=== PATIENT | female | born 1985 | race Caucasian/White ===

== ENCOUNTER 2018-03-10 02:27 | Inpatient (IN) | payer OTHER ==
[2018-03-10] MEDS ORDERED: Promethazine INJ(RESTRICTED)* 25 MG/ML 1 ML VIAL IM ONE (03:21)
[2018-03-10] MEDS ORDERED: Nalbuphine* 10 MG/ML 1 ML VIAL IM ONE (03:21)
[2018-03-10] MEDS ORDERED: Promethazine INJ(RESTRICTED)* 25 MG/ML 1 ML VIAL ONE (03:38)
[2018-03-10] MEDS ORDERED: Nalbuphine* 10 MG/ML 1 ML VIAL ONE (03:41)
[2018-03-10] MEDS ORDERED: Terbutaline INJ* 1 MG/ML VIAL SUBCUT ONE (07:23)
--- NOTE | 2018-03-10 07:23 | PN ---
Progress Note - Progress Note Date of Service: 03/10/18 - Note time 0545 Note: S: Patient did not get pain relief or sleep after nubain/phenergan. Feels that contractions are stronger, would like VE O: VE: 1-2cm/80/0 unchanged from earlier FHT 135 Cat 1 UCs Q 2.5-4 T 98.4 A: Prodromal labor P: Patient would like to try tub and consider nitrous. Discussed option to slow labor with terbutaline; patient would rather keep trying to move forward and is concerned about stopping contractions making process take longer.
--- NOTE | 2018-03-10 07:36 | PN ---
Progress Note - Progress Note Date of Service: 03/10/18 SOAP: Subjective: [Small amount of relief from tub, especially in hands/knees position. Patient reports episode of vomiting.] Objective: [VE deferred UCs Q 2-3 min] Assessment: [Prodromal labor Consider UTI, vaginal infection] Plan: [PARQ discussion terbutaline, patient initially very reluctant. Agrees to IV fluids. Plan to push bolus, collect urine for UA, Affirm to r/o vaginal infection. After discussion patient's to desk to state patient agrees to terbutaline. ]
[2018-03-10 07:55] LABS: ABS Basophils 0.1 10^3/ul (0-0.2); ABS Eosinophils 0 10^3/ul (0-0.6); ABS Lymphocytes 1.7 10^3/ul (1.0-4.8); ABS Monocytes 0.9 10^3/ul (0-0.8); ABS Neutrophils 12.7 10^3/ul (1.5-7.7); ABS Nucleated RBC 0 10^3/ul; Eosinophil % 0.2 % (0-6); Hematocrit 32 % (35-47); Hemoglobin 11.3 g/dl (12.0-16.0); Mean Corpuscular HGB Conc 35 g/dl (31-36); Mean Corpuscular Hemoglobin 32 pg (27-31); Mean Corpuscular Volume 90 fL (80-97); Nucleated Red Blood Cells % 0; Platelet Count 211 10^3/ul (150-450); Red Blood Count 3.56 10^6/ul (4.00-5.40); Red Cell Distribution Width 14 % (10.5-15); White Blood Count 15.4 10^3/ul (3.5-10.8)
[2018-03-10 09:03] LABS: Urine Appearance Cloudy; Urine Blood 3+ (Negative); Urine Color Yellow; Urine Ketones Trace (Negative); Urine Protein Negative (Negative); Urine Red Blood Cell Trace(0-2/hpf) (Absent); Urine Specific Gravity 1.009 (1.010-1.030); Urine Urobilinogen Negative (Negative); Urine White Blood Cell 2+(11-20/hpf) (Absent)
--- NOTE | 2018-03-10 10:28 | HP ---
General Information - Reason for Visit Pt was seen in L&D as outpatient several days ago for prodromal labor, treated with therapeutic rest and discharged home. Contractions did not subside however , and pt returned to L&D early this morning. On arrival pt was very uncomfortable (see Progress Notes) without cervical change. Therapeutic rest was attempted with Nubain and Phenergan but did not provide pt with relief. UA, Affirm were collected and pt was given IV hydration. After ctx did not decrease , pt was given dose of Terbutaline, which caused contractions to space out from every 2-4 minutes to every 8-10 minutes, but within half an hour ctx frequency was increasing again. At that time cervical exam was 2cm/ 100%/ 0 station/ vtx, which was small change from previous exam. Options discussed with pt and , including epidural and augmentation as needed, Nitrous Oxide, tub, etc. Pt elected to try nitrous oxide. While using nitrous oxide, side-lying release done through three ctx on each side. Pt experienced a lot of nausea with the nitrous oxide and some minimal relief. Again discussed options with pt and . We can try to treat the nausea with zofran so she can more effectively use the nitrous, we can get her an epidural, we can try IV Fentanyl. Pt and discussing options. Pt in side lying position with peanut ball. Will admit to L&D. - General Information Maternal Age: 33 Grav: 1 Para: 0 SAB: 0 IEA: 0 Estimated Due Date: 03/13/18 Determined By: LMP Maternal Blood Type and Rh: O Positive - Results this Serology/RPR Result: Non-Reactive Rubella Result: Immune HBsAg Result: Negative HIV Result: Negative GBS Culture Result: Negative Past Medical History Delivery History: See Records - Primiparous Pertinent Past Medical History: See Records - Factor V Leiden, benign breast cysts Pertinent Past Surgical History: See Records - Hartman tooth extraction , breast biopsy Pertinent Family History: See Records - mother- Factor V Leiden, stroke - Antepartal Records Antepartal Records: Reviewed, Uncomplicated Review of Systems Constitutional: Uncomfortable CV Complaint: No Respiratory: Shortness of Breath: No Gastrointestinal: Normal Bowel Movement, Nausea Genitourinary: No Dysuria, No Bleeding, No Leaking Fluid Musculoskeletal: No Epigastric Pain, Back Pain, Contractions Neurological: No Headache, No Visual Changes Movement: Normal Exam Allergies/Adverse Reactions: Allergies No Known Allergies Allergy (Verified 03/06/18 19:31) BP- 125/79, T-99.4, P-102, R-18, O2- 100% Lab Values - Entire Visit: Laboratory Tests 03/10/18 03/10/18 03/10/18 07:35 07:35 08:35 WBC 15.4 H RBC 3.56 L Hgb 11.3 L Hct 32 L MCV 90 MCH 32 H MCHC 35 RDW 14 Plt Count 211 MPV 8.0 Neut % (Auto) 82.3 Lymph % (Auto) 11.0 L [place] % (Auto) 5.7 Eos % (Auto) 0.2 Baso % (Auto) 0.8 Absolute Neuts (auto) 12.7 H Absolute Lymphs (auto) 1.7 Absolute Monos (auto) 0.9 H Absolute Eos (auto) 0 Absolute Basos (auto) 0.1 Absolute Nucleated RBC 0 Nucleated RBC % 0 Urine Color Yellow Urine Appearance Cloudy Urine pH 7.0 Ur Specific [place] 1.009 L Urine Protein Negative Urine Ketones Trace A Urine Blood 3+ A Urine Nitrate Negative Urine Bilirubin Negative Urine Urobilinogen Negative Ur Leukocyte Esterase 3+ A Urine WBC (Auto) 2+(11-20/hpf) A Urine RBC (Auto) Trace(0-2/hpf) Ur Squamous Epith Cells Present A Urine Bacteria Absent Urine Glucose Negative Blood Type O Positive Antibody Screen Negative - Measurements Height: 5 ft 4 in Weight: 63.503 kg Weight in lbs: 140.779738 Body Mass Index (BMI): 24.0 Pre- Weight: 52.163 kg Weight Gained This : 25 lbs and 0 ozs - Exam Breast: Breast Exam Deferred CVA: No CVA Tenderness Extremities: No Edema Heart: Normal Rhythm/Heart Sounds HEENT: No Significant Findings Lungs: Clear Bilaterally Rectal: Rectal Exam Deferred Reflexes: DTR 2+ Thyroid: No Thyromegaly - Abdominal Exam Abdomen Exam: Non-Tender, Fundal Height Consistent with Dates - Ultrasound/Biophysical Profile Ultrasound Status: Not Done Targeted Exam Findings See L&D Outpatient Visit Provider Note for Findings: Yes Estimated Weight: 6# Cervical Exam: 2cm Effacement: 100% Station: 0 Presenting Part: Vertex Membrane Status: Intact Bleeding/Discharge: None EFM Findings - External Monitor Findings Baseline Heart Rate: 160 External Monitor Findings: No Pattern of Variable or Late Decelerations, Variability Moderate, Baseline Stable, Accelerations Absent Contractions: Regular, Moderate, 45-90 Seconds Contraction Frequency: 4-5 minutes Assessment/Plan - Assessment 33 year old at 39 4/7 weeks gestation with prolonged early labor, intact membranes, and no evidence of acidemia. - Plan Plan: Admit - Anticipate Vaginal Delivery - Date/Time of Admission Date of Admission: 03/10/18 Time of Admission: 09:35
[2018-03-10] MEDS ORDERED: Ondansetron INJ* 2 MG/ML VIAL IV PRN (10:40)
[2018-03-10] MEDS ORDERED: Ondansetron INJ* 2 MG/ML VIAL ONE (10:42)
[2018-03-10] MEDS ORDERED: OBEPIDURAL* 250 ML EPIDURAL ONE (10:55)
--- NOTE | 2018-03-10 11:12 | PN ---
Progress Note - Progress Note Date of Service: 03/10/18 SOAP: Subjective: [Pt remains extremely uncomfortable with ctx, despite using nitrous oxide. Difficulty coping. Pt requests epidural] Objective: [VSS- Temporal artery thermometer temp was 100.7, oral temp was 98.7, pt had not had anything to drink prior FHR 160, moderate variabilty UCs moderate, Q3-5 minutes, 60-80 seconds Membranes intact, exam deferred until pt more comfortable with epidural] Assessment: [33 year old at 39 4/7 weeks gestation in prolonged early labor, fatigued and no longer able to cope effectively with ctx] Plan: [Anesthesiologist paged for epidural. Will attempt to get pt comfortable with epidural then evaluate dilation, consider augmentation as needed. Will monitor pt's temperature hourly. ]
[2018-03-10] MEDS ORDERED: Famotidine TAB* 20 MG PO PRN (11:59)
[2018-03-10] MEDS ORDERED: EPHEDrine (Pressors)* 50 MG/ML VIAL IV PUSH PRN ×2 (11:59)
[2018-03-10] MEDS ORDERED: Sodium Citrate/Citric Acid* 15 ML UDC PO PRN (11:59)
[2018-03-10] MEDS ORDERED: Phenylephrine IV* 40 MCG/ML 10 ML SYRINGE IV PUSH PRN ×2 (11:59)
[2018-03-10] MEDS ORDERED: OBEPIDURAL* 250 ML EPIDURAL SCH (12:00)
--- NOTE | 2018-03-10 12:25 | PN ---
Progress Note - Progress Note Date of Service: 03/10/18 SOAP: Subjective: [Pt very comfortable with epidural. Reports some pressure, but very tolerable. ] Objective: [FHR- 145 baseline, moderate variability, no accels, no decels Ctx 3-5 minutes, 60-80 seconds, moderate strength Cervical exam: 3cm/ 100%/ +1 station/ VTX/ bulging bag VSS- last temp 98.6 oral] Assessment: [33 year old G1Po at 39 4/7 weeks gestation in early labor, now making cervical change, no evidence of acidemia, membranes intact, comfortable with epidural ] Plan: [Encourage pt to rest. Will recheck cervix in 2 hours and consider AROM or Pitocin augmentation PRN. ]
[2018-03-10] MEDS ORDERED: Acetaminophen TAB* 325 MG PO PRN (16:04)
[2018-03-10] MEDS ORDERED: Witch Hazel PAD* JAR TOPICAL PRN (16:04)
[2018-03-10] MEDS ORDERED: Dibucaine 1% 28.35 GM TUBE PR PRN (16:04)
[2018-03-10] MEDS ORDERED: Glycerin ADULT SUPP PR PRN (16:04)
--- NOTE | 2018-03-10 16:28 | PROCNOTE ---
[facility] OB: Delivery Note - Delivery A Date of : 03/10/18 Time of : 14:59 [place] Sex: Female Weight at : 2.794 kg Score 1 Minute: 8 Score 5 Minutes: 9 Gestational Age in Weeks and Days at Delivery: 39 Weeks and 4 Days Delivery Method: Spontaneous Vaginal Labor: Spontaneous Did Patient attempt ?: N/A, No Previous Amniotic Fluid: Clear Anesthesia/Analgesia: None Delivered By: Samantha Castillo - Nursery Level of Nursery: Regular/Bedside - Perineum Perineal Injury: 1st Degree Perineal Injury Comment: c bilateral labial lacerations Perineal Repair: By Delivering Practioner - Events Delivery Events of Note: None Apply - Additional Delivery Notes Additional Delivery Notes: Pt was admitted to labor and delivery after experiencing several days of prodromal labor. At the time of admission, she remained at 2 cm dilation. Pt utilized nitrous oxide for pain relief, with minimal relief. She eventually requested and received an epidural with good pain relief. At that time she had progressed to 3cm. After receiving the epidural pt rested for a couple hours then experienced SROM of clear fluid, followed by a strong urge to push. Pt examined and found to be fully dilated and +2-3 station. Pt coached on pushing and pushed with strong effort. Infant soon delivered OA to ABBY with tight nuchal cord. Infant somersaulted through cord and placed on maternal abdomen with vigorous cry and good tone, FHR >100. Apgars of 8 and 9. After pulsation ceased cord clamped x2 and cut by infant's father. Placenta soon delivered, edgardo side, intact. Fundus firm, bleeding minimal. Perineum with 1st degree laceration, repaired with 3-0 Rapide suture. Bilateral labial abrasions noted, repaired with 4-0 Rapide. At this time, mother and infant stable, and resting comfortably. Anticipate normal course.
[2018-03-10] MEDS: Docusate CAP* 100 MG PO SCH (21:12)
[2018-03-11 06:31] LABS: ABS Basophils 0.1 10^3/ul (0-0.2); ABS Eosinophils 0 10^3/ul (0-0.6); ABS Lymphocytes 1.7 10^3/ul (1.0-4.8); ABS Monocytes 1.3 10^3/ul (0-0.8); ABS Neutrophils 18.7 10^3/ul (1.5-7.7); ABS Nucleated RBC 0 10^3/ul; Eosinophil % 0.1 % (0-6); Hematocrit 33 % (35-47); Hemoglobin 11.5 g/dl (12.0-16.0); Lymphocyte % 7.7 % (25-47); Mean Corpuscular HGB Conc 35 g/dl (31-36); Mean Corpuscular Hemoglobin 32 pg (27-31); Mean Corpuscular Volume 92 fL (80-97); Mean Platelet Volume 7.9 um3 (7.4-10.4); Nucleated Red Blood Cells % 0.1; Platelet Count 191 10^3/ul (150-450); Red Blood Count 3.59 10^6/ul (4.00-5.40); Red Cell Distribution Width 14 % (10.5-15); White Blood Count 21.8 10^3/ul (3.5-10.8)
[2018-03-11] MEDS: Ibuprofen TAB* 600 MG PO PRN (08:22)
[2018-03-11] MEDS: Docusate CAP* 100 MG PO SCH ×2 (08:22→19:09)
[2018-03-11] MEDS ORDERED: Ferrous Gluconate TAB* 324 MG TAB PO SCH (09:00)
[2018-03-12] MEDS: Ibuprofen TAB* 600 MG PO PRN (01:26)
[2018-03-12 08:16] VITALS: BP 105/65
[2018-03-12] MEDS: Docusate CAP* 100 MG PO SCH (08:46)
== END 2018-03-12 10:35 | disposition home or self-care (01) | DRG 807 ==
LOC: MCHOBOUT 02:27 → MCHOB 09:35
PROVIDERS: ADMIT Midwife; ATTEND Midwife
PROC: 10E0XZZ Delivery of Products of Conception, External Approach (ICD-10-PCS; principal; 2018-03-10)
PROC: 0HQ9XZZ Repair Perineum Skin, External Approach (ICD-10-PCS; 2018-03-10)
DX: O63.0 Prolonged first stage (of labor) (principal); Z37.0 Single live birth; O75.89 Other specified complications of labor and delivery; O70.0 First degree perineal laceration during delivery; O69.81X0 Labor and delivery complicated by cord around neck, without compression, not applicable or unspecified; Z3A.39 39 weeks gestation of pregnancy
CPT/HCPCS: 36415; 81003; 81015; 85025; 86850; 86900; 86901; 87086; 87480; 87510; 87660; A9270-GY; J2300; J2405; J2550; J3105

== ENCOUNTER 2019-07-30 12:13 | Inpatient (IN) | payer SELFPAY ==
--- NOTE | 2019-07-30 13:46 | ED ---
Psychiatric Complaint - HPI Summary HPI Summary: This patient is a 34 y/o female, accompanied by , presenting to [facility] for increased anxiety and eder. reports patient has been having "psychotic presentations and disassociation." states patient was water plants yesterday at 0500 because it was light and when asked about it patient began to sing not addressing inquiries. Additionally notes patient wanted to go gardening at 2130 last night. Per , patient was also trying to get rid of their 17 month old baby's car seat and dressing table. reports patient admitted to wanting to hurt herself last night to him. Per , patient did not express any SI plan. Patient currently denies any SI or HI. Per , patient was hospitalized about 16 years ago for an eating disorder. Patient denies any PMHx. Patient denies taking any medications. Patient denies tobacco and drug use. She reports drinking alcohol occasionally. states patient drank alcohol the night before last night. Outside of the room reports the following: reports patient is triggered by the global pandemic and recent stress. Per , recent stress comes from transitioning from 1 job to another. 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 reports patient is putting up a wall and is acting "like everything is fine." Per patient has ambiguous answers and is not divulging information. provides examples of patient not acting herself, for example their daughter felt warm yesterday. The patient then took her temperature for 2 seconds and said it was 101.3F and mentioned "it was not bad." states patient has not been sleeping well for the last 3 days and is positive patient did not sleep last night at all. is worried that patient will do something harmful unintentionally. reports he slept at the foot of their baby's crib because patient kept coming to carry their baby. Per , this is the first time patient has had this blown out psychotic episode. has a notebook where patient has been writing on these days. - History Of Current Complaint Chief Complaint: EDMentalHealth Time Seen by Provider: 07/30/19 13:39 Hx Obtained From: Patient, Family/Radio Mechanic - Onset/Duration: Lasting Days - 1, Still Present Timing: Days - 1 Severity Currently: Moderate Character: Manic, Anxious Aggravating Factor(s): Recent Stress Alleviating Factor(s): Nothing Associated Signs And Symptoms: Positive: Sleep Disturbance Related History: Negative For: Prior Psychiatric Issues Has Suicidal: Denies: Thoughts, With A Plan Has Homicidal: Denies: Thoughts, With A Plan Recent Stressor(s): global pandemic and work - Allergies/Home Medications Allergies/Adverse Reactions: Allergies Allergy/AdvReac Type Severity Reaction Status Date / Time No Known Allergies Allergy Verified 07/30/19 12:32 Home Medications: Home Medications Benzonatate CAP* [Tessalon 100 MG CAP*] 200 mg PO TID PRN 07/30/19 [History Confirmed 07/30/19] Tiotropium [place] [Spiriva Respimat] 1 puff INH BID PRN 07/30/19 [History Confirmed 07/30/19] PMH/Surg Hx/FS Hx/Imm Hx Endocrine/Hematology History: Denies: Hx Diabetes, Hx Thyroid Disease Cardiovascular History: Denies: Hx Hypertension Respiratory History: Denies: Hx Asthma History: Denies: Hx Kidney Infection, Other Problems/Disorders Psychiatric History: Denies: Hx Anxiety, Hx Depression, Other Psychiatric Issues/Disorders - Surgical History Surgical History: None Infectious Disease History: No Infectious Disease History: Denies: Traveled Outside the [place] in Last 30 Days - Family History Known Family History: Negative: Cardiac Disease, Hypertension, Diabetes - Social History Alcohol Use: Occasionally Alcohol Amount: "A few glasses of wine in third trimester Substance Use Type: Reports: None Smoking Status (MU): Never Smoked Tobacco Review of Systems Constitutional: Other - POSITIVE: sleep disturbance Negative: Fever Psychological: Other - POSITIVE: manic, recent stress, disassociation Positive: Anxious. Negative: Other - NEGATIVE: SI or HI All Other Systems Reviewed And Are Negative: Yes Physical Exam - Summary Physical Exam Summary: VITAL SIGNS: Reviewed. GENERAL: Patient is a well-developed and nourished female. Patient is not in any acute respiratory distress. HEAD AND FACE: No signs of trauma. No ecchymosis, hematomas or skull depressions. No sinus tenderness. EYES: PERRLA, EOMI x 2, No injected conjunctiva, no nystagmus. EARS: Hearing grossly intact. Ear canals and tympanic membranes are within normal limits. MOUTH: Oropharynx within normal limits. NECK: Supple, trachea is midline, no adenopathy, no JVD, no carotid bruit, no c- spine tenderness, neck with full ROM. CHEST: Symmetric, no tenderness at palpation LUNGS: Clear to auscultation bilaterally. No wheezing or crackles. CVS: Regular rate and rhythm, S1 and S2 present, no murmurs or gallops appreciated. ABDOMEN: Soft, non-tender. No signs of distention. No rebound, no guarding, and no masses palpated. Bowel sounds are normal. EXTREMITIES: FROM in all major joints, no edema, no cyanosis or clubbing. NEURO: Alert and oriented x 3. No acute neurological deficits. Speech is normal and follows commands. SKIN: Dry and warm Triage Information Reviewed: Yes Vital Signs On Initial Exam: Initial Vitals Temp Pulse Resp BP Pulse Ox 99 F 70 16 147/113 100 07/30/19 12:18 07/30/19 12:18 07/30/19 12:18 07/30/19 12:18 07/30/19 12:18 Vital Signs Reviewed: Yes Procedures - Sedation Patient Received Moderate/Deep Sedation with Procedure: No Diagnostics - Vital Signs Vital Signs Temp Pulse Resp BP Pulse Ox 07/30/19 12:18 99 F 70 16 147/113 100 - Laboratory Result Diagrams: 07/30/19 14:06 07/30/19 14:06 Lab Statement: Any lab studies that have been ordered have been reviewed, and results considered in the medical decision making process. Course/Dx - Course Assessment/Plan: This patient is a 34 y/o female, accompanied by , presenting to [facility] for increased anxiety and eder. reports patient has been having "psychotic presentations and disassociation." states patient was water plants yesterday at 0500 because it was light and when asked about it patient began to sing not addressing inquiries. Additionally notes patient wanted to go gardening at 2130 last night. Per , patient was also trying to get rid of their 17 month old baby's car seat and dressing table. reports patient admitted to wanting to hurt herself last night to him. Per , patient did not express any SI plan. Patient currently denies any SI or HI. Per , patient was hospitalized about 16 years ago for an eating disorder. Patient denies any PMHx. Patient denies taking any medications. Patient denies tobacco and drug use. She reports drinking alcohol occasionally. states patient drank alcohol the night before last night. Outside of the room reports the following: reports patient is triggered by the global pandemic and recent stress. Per , recent stress comes from transitioning from 1 job to another. 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 reports patient is putting up a wall and is acting "like everything is fine." Per patient has ambiguous answers and is not divulging information. provides examples of patient not acting herself, for example their daughter felt warm yesterday. The patient then took her temperature for 2 seconds and said it was 101.3F and mentioned " it was not bad." states patient has not been sleeping well for the last 3 days and is positive patient did not sleep last night at all. is worried that patient will do something harmful unintentionally. reports he slept at the foot of their baby's crib because patient kept coming to carry their baby. Per , this is the first time patient has had this blown out psychotic episode. has a notebook where patient has been writing on these days. Blood work w/o any significant abnormality. She is medically cleared. She is waiting for a mental health evaluation. Patient is hemodynamically stable and A+O x 3. Patient had a MHE and her case was reviewed by Dr. Shin, psychiatrist. Per mental health black ash worker, Dr. Shin will admit the patient on an involuntary status to [facility] with diagnosis of psychosis NOS. - Differential Dx/Clinical Impression Provider Diagnosis: Psychosis Discharge ED - Sign-Out/Discharge Documenting (check all that apply): Patient Departure - Admit to [facility] PSYCH - Discharge Plan Condition: Stable Disposition: PSYCHIATRIC FACILITY-[facility] - Billing Disposition and Condition Condition: STABLE Disposition: Psychiatric Facility [facility] - Attestation Statements Document Initiated by Scribe: Yes Documenting Scribe: Courtney Hall Provider For Whom Eldon is Documenting (Include Credential): Yves Brenner MD Scribe Attestation: Courtney Arenas, scribed for Yves Brenner MD on 08/01/19 at 0350. Scribe Documentation Reviewed: Yes Provider Attestation: The documentation as recorded by the Courtney land accurately reflects the service I personally performed and the decisions made by me, Yves Brenner MD Status of Scribe Document: Viewed
[2019-07-30 14:15] LABS: ABS Basophils 0.1 10^3/ul (0-0.2); ABS Eosinophils 0.1 10^3/ul (0-0.6); ABS Lymphocytes 2.4 10^3/ul (1.0-4.8); ABS Monocytes 0.7 10^3/ul (0-0.8); ABS Neutrophils 6.4 10^3/ul (1.5-7.7); Eosinophil % 0.7 %; Hematocrit 40 % (35-47); Hemoglobin 13.5 g/dL (12.0-16.0); Lymphocyte % 24.8 %; Mean Corpuscular HGB Conc 34 g/dL (31-36); Mean Corpuscular Hemoglobin 30 pg (27-31); Mean Corpuscular Volume 89 fL (80-97); Mean Platelet Volume 7.9 fL (7.4-10.4); Platelet Count 281 10^3/uL (150-450); Red Blood Count 4.46 10^6 /uL (3.70-4.87); Red Cell Distribution Width 14 % (10-15); White Blood Count 9.7 10^3/uL (3.5-10.8)
[2019-07-30] MEDS ORDERED: LORazepam TAB(*) 1 MG PO ONE ×2 (14:30→15:50)
[2019-07-30 14:32] LABS: ALT 12 U/L (7-52); AST 16 U/L (13-39); Albumin 4.8 g/dL (3.2-5.2); Albumin/Globulin Ratio 1.6 (1-3); Alkaline Phosphatase 44 U/L (34-104); Anion Gap 9 mmol/L (2-11); Blood Urea Nitrogen 12 mg/dL (6-24); CO2 Carbon Dioxide 23 mmol/L (22-32); Calcium 9.7 mg/dL (8.6-10.3); Chloride 103 mmol/L (101-111); EGFR African American 132.5 (>60); EGFR Non-African American 109.5 (>60); Glucose 94 mg/dL (70-100); Potassium 3.7 mmol/L (3.5-5.0); Sodium 135 mmol/L (135-145); Total Protein 7.8 g/dL (6.4-8.9)
[2019-07-30 14:54] LABS: Acetaminophen < 15 mcg/mL; Alcohol < 10 mg/dL (<10); Salicylate < 2.50 mg/dL (<30)
[2019-07-30 15:08] LABS: TSH (Thyroid Stimulating Horm) 0.98 mcIU/mL (0.34-5.60)
[2019-07-30 15:27] LABS: Urine Appearance Clear; Urine Bilirubin Negative (Negative); Urine Blood Negative (Negative); Urine Color Yellow; Urine Glucose Negative (Negative); Urine Ketones 2+ (Negative); Urine Nitrite Negative (Negative); Urine Protein Negative (Negative); Urine Specific Gravity 1.017 (1.010-1.030); Urine Urobilinogen Negative (Negative)
[2019-07-30 15:29] LABS: Urine Bacteria Absent (Absent); Urine Red Blood Cell Absent (Absent); Urine Squamous Epithelial Cell Present (Absent); Urine White Blood Cell Trace(0-5/hpf) (Absent)
[2019-07-30 15:32] LABS: Urine Benzodiazepine Screen None Detected (None Detect); Urine Opiates Screen None Detected (None Detect)
[2019-07-30] MEDS ORDERED: Al Hydrox/Mg Hydrox/Simet LIQ* 30 ML UDC PO PRN (16:29)
[2019-07-30] MEDS ORDERED: Acetaminophen TAB* 325 MG PO PRN (16:29)
[2019-07-30] MEDS ORDERED: TIOTROPIUM BROMIDE INH PRN ×2 (16:31→17:44)
[2019-07-30] MEDS: chlorproMAZINE TAB* 50 MG PO PRN (18:13)
[2019-07-30] MEDS: LORazepam TAB(*) 1 MG PO PRN (19:35)
[2019-07-31] MEDS: chlorproMAZINE TAB* 50 MG PO PRN (06:06)
[2019-07-31] MEDS: LORazepam TAB(*) 1 MG PO PRN (06:06)
--- NOTE | 2019-07-31 10:21 | HP ---
H&P (Free Text) History and Physical: Justification for admission: Immediate Safety. CC " I panicked" The patient was brought to [facility] by her after he noticed behavioral changes that included not sleeping, saying things that did not make sense. expressing suicidal ideation and giving away her daughters belongings. She denied access to firearms or stockpiles of medications. She reported not sleeping since Sunday and having a poor appetite. Upon evaluation, the patient denied homicidal ideation intent or plan, although per staff report the patient told her that the only way to kill the virus is to overdose her baby. The patient denied visual hallucinations. The patient reported hearing voices sometimes and that the voices were more loud since Sunday and was described them as a pulse of light. She reported using cannabis a week ago but did not notice any changes in herself after using. Patient reported having a 17 month old daughter , and she felt depressed after giving but denied psychotic symptoms following delivery. She reported that due to the coronavirus that she became scared about not having things for her daughter. Patient received medication of thorazine 50mg and ativan 1mg prn. Depression She reported feeling depressed and having trouble with sleep. She has had recent weight loss, appetite and decreased concentration. Anxiety She reported feeling restless, high strung, and worrying too much most of the time. Bipolar She reported having symptoms of eder such as having many ideas at once with increased talkativeness where no one can interrupt. She has been experiencing he decreased need to sleep for days. She reported increased goal directed activities. Denied impulsive risky sexual encounters. Denied spending money recklessly , going on spending sprees wiping out savings. Denied impulsively traveling out of town or country, having super soliman, and unrealistic wealth or fame. Psychosis Denied feeling that TV is making references. Denied feeling that people are spying , following , or reading her thoughts. Phobias: Patient denied having excessive fear of a particular thing or situation. Eating disorders: Patient denied having excessive eating habits or feelings of guilt after eating. Denied repeated episodes of self induced vomiting after eating. PTSD Denied flashbacks, nightmares and avoidance of a prior traumatic event. PAST PSYCHIATRIC HISTORY: Prior Diagnosis : Bipolar I disorder, Borderline personality disorder , history of bulimia nervosa. History of past Psychiatric Hospitalizations: 2 prior psychiatric admission. In 2007 due to a suicide attempt in [facility] and another was in 2003 due to a eating disorder in [facility]. History of past suicide/homicide attempts : 1 past suicide attempts, denied repeated self injurious behavior. Denied history of violence. Outpatient follow-up: none at this time Medications: Past trials of medications include Depakote , seroquel both made her feel sleepy so she stopped taking them. Guardianship: None. FAMILY HISTORY: - Suicide: Her mother has made a past suicide attempt - Mental illness: Mother has bipolar disorder - Substance abuse: Denied substance abuse among family members. SUBSTANCE ABUSE HISTORY: - EtOH: Drinks 1-2 bottles of wine on the weekend. No associated legal issues, blackouts, seizures, DTs or past hospitalizations due to alcohol. - Tobacco: Denied - Cannabis: uses on average once weekly - Heroin: Denied - Cocaine: Denied - Substance abuse treatment: Denied past substance abuse treatment SOCIAL HISTORY: - Denied a history of childhood physical and or sexual abuse Born in [facility] and raised by both parents. - Education: Completed college and was recently enrolled in a PhD program at [employer]. No history of special education. - Living situation: Currently lives in [place] [place] with her - Employment history: Currently unemployed prior work included IT work at [employer] - Relationship: and has one daughter - Legal history: Denied - service history: Denied PAST MEDICAL HISTORY: Denied heart disease, diabetes, cancer and/ or other medical conditions. - Allergies: Denied drug or other allergies. Physical Exam: Please see ED note Mental Status Exam on Admission APPEARANCE : 34 year old Female who appears stated age. Patient is not malodorous, and appears to have poor hygiene and grooming. BEHAVIOR: Cooperative , calm EYE CONTACT: Fair PSYCHOMOTOR ACTIVITY: No psychomotor agitation or retardation. MOVEMENTS: No abnormal movements observed. SPEECH : Normal rate, rhythm, volume and tone. MOOD : "Fine " AFFECT : Type is anxious, Range is restricted Mood Congruent THOUGHT PROCESS: Slow response with some latency, concrete, thought blocking THOUGHT CONTENT: no delusions, obsessions, phobias or preoccupations. PERCEPTION: auditory hallucinations. Doesnt appear to be responding to internal cues with some depersonalization SUICIDALITY recent suicidal ideation HOMICIDALITY Denied homicidal ideation, intent or plan, however per collateral report she voices that the only way to kill the virus is to kill her baby. Insight/judgment: Poor insight and judgment ORIENTATION: Oriented to self, location, and time. Diagnosis on Admission: Bipolar I disorder with recent manic episode, Borderline personality disorder, history of bulimia nervosa Assessment: 34 year old Female with a history of Bipolar I disorder, Borderline personality disorder, history of bulimia nervosa who presented to the emergency department showing signs of psychosis and was admitted to the BSU at [facility]. Plan #Admit to BSU, Q15 minute observation. Start regular diet. Encourage participation in group therapy and psychoeducation #Patient evaluated in ED and was determined by the emergency room Physician to be medically fit for admission to the BSU. # Justification for Admission: For immediate safety per outlined in the [facility] Hygiene Code. # The patient requires psychiatric inpatient admission at this time to assure safety, receive treatment and work toward stabilization. # Labs ordered: CBC, CMP, UDS, TSH, HBA1c, TSH, Toxicology screen, Urine analysis, and lipid profile. # Plan to monitor for metabolic changes by weight, HBA1c, glucose, and lipid panel # EKG ordered for risk of QT prolongation of antipsychotic medication. # B-HCG was ordered and results are negative. # Obtain collateral information once release is signed. # Collaboration with Nursing Unit Clerk Samantha Busby. # Start lithium 150mg BID #Goals before discharge include: Psychiatric Stabilization Tentative Discharge: Pending hospital course and response to treatment The risks, benefits, and alternative treatment options were discussed as well as the risks of refusing treatment. After this discussion and an acknowledgement of this understanding was made. A risk/ benefit assessment of treatment was considered and discussed with the patient. When comparing the risks of treatment with the dangers of not receiving treatment, the benefits of treatment outweigh the treatment risks at this time. Risks of allergy, suicidal ideation, behavioral changes, dystonia, rashes, electrolyte imbalances, movement disorders, cardiac conduction changes, serotonin syndrome, metabolic risks and NMS were among some of the risks discussed. Acetaminophen (Tylenol Tab*) 650 mg PO Q4H PRN PRN Reason: for pain; or Temp >101 F Al Hydrox/Mg Hydrox/Simethicone (Maalox Plus*) 30 ml PO Q4H PRN PRN Reason: INDIGESTION Chlorpromazine HCl (Thorazine Tab*) 50 mg PO Q6H PRN PRN Reason: AGITATION Last Admin: 07/31/19 06:06 Dose: 50 mg [place] Carbonate ([place] Carbonate Cap) 150 mg PO BID LOU Lorazepam (Ativan Tab(*)) 1 mg PO Q6H PRN PRN Reason: ANXIETY Last Admin: 07/31/19 06:06 Dose: 1 mg Non-Formulary Medication (Tiotropium [place] [Spiriva Respimat]) 1 puff INH BID PRN PRN Reason: SOB/WHEEZING
[2019-07-31 11:06] LABS: HCG Pregnancy < 0.60 mIU/mL
[2019-07-31] MEDS: Lithium Carbonate CAP 150 MG ** CAPSULE PO SCH (15:20)
[2019-08-01] MEDS: Lithium Carbonate CAP 150 MG ** CAPSULE PO SCH ×2 (01:20→11:30)
[2019-08-01] MEDS: LORazepam TAB(*) 1 MG PO PRN ×2 (06:40→13:30)
[2019-08-01] MEDS: chlorproMAZINE TAB* 50 MG PO PRN (06:40)
[2019-08-01] MEDS ORDERED: Influenza VAC *QUAD* 2019-20* 0.5 ML SYRINGE IM ONE (09:00)
--- NOTE | 2019-08-01 11:55 | PN ---
Subjective - Subjective Date of Service: 08/01/19 Service Type: 41032 Hosp care 35 min high complexity Subjective: Nursing Report: Patient mostly in her room, not attending groups. Slept 5.5 hours. CC: "I just want to see my baby" This patient was seen and evaluated today. She spoke to her and father. She asked about when she can leave the hospital. She was wearing sunglasses and in bed before encounter. She reported that she was confused when she told her that she was thinking of ending her life and thinking about killing her daughter to save her from the virus. The patient went to some of the day groups. The patient became upset about being unable to leave. Patient reported that she is tolerating medications without side effects. Objective - General Observations Appearance: Disheveled Appears Stated Age: No Stature: Thin Posture: Tense Eye Contact: Average Behavior/Activity: Peculiar - Interaction Observations Attitude Towards Examiner: Cooperative Stated Mood: Irritable, Anxious Affect: Restricted Speech Pattern/Tone: Appropriate Thought Process: [place] Perception: Depersonalization Thought Process: Lethality: Passive Wish Hallucination Type: Auditory Delusion Type: Persecution - Cognitive Function Orientation: A&O x 4 Level of Consciousness: Awake Judgment Within Normal Limits: No Ability to Make Reasonable Decisions: Serverely Impaired - Medication Compliance Cooperative with Inpatient Medication Regimen: Yes - Group Participation Participates in Group Activities: No Assessment - Assessment Merits Inpatient Hospitalization: For Immediate Safety Clinical Impression: 34 year old Female with a history of Bipolar I disorder, Borderline personality disorder, history of bulimia nervosa who presented to the emergency department showing signs of psychosis and was admitted to the BSU at [facility]. Plan - Plan Treatment Plan: Name: PHILIPP GAMBOA Birthdate: 1985 [id number] #Q15 minute observation. # The patient requires psychiatric inpatient admission at this time to assure safety, receive treatment and work toward stabilization. # EKG ordered for risk of QT prolongation of antipsychotic medication. # B-HCG was ordered and results are negative. # Obtained collateral information from her at [phone] # Collaboration with Service Director Samantha Busby. # Increase lithium 300mg BID # CPS report filed # Zyprexa 5 mg qhs # Discontinued thorazine prn and started zyprexa prn #Goals before discharge include: Psychiatric Stabilization Tentative Discharge: Pending hospital course and response to treatment Sodium 135 mmol/L (135-145) 07/30/19 14:06 Potassium 3.7 mmol/L (3.5-5.0) 07/30/19 14:06 BUN 12 mg/dL (6-24) 07/30/19 14:06 Creatinine 0.63 mg/dL (0.51-0.95) 07/30/19 14:06 Calcium 9.7 mg/dL (8.6-10.3) 07/30/19 14:06 AST 16 U/L (13-39) 07/30/19 14:06 ALT 12 U/L (7-52) 07/30/19 14:06 Continued Medication Management: Continue Outpt Medication Medications: Current Medications Acetaminophen (Tylenol Tab*) 650 mg PO Q4H PRN PRN Reason: for pain; or Temp >101 F Al Hydrox/Mg Hydrox/Simethicone (Maalox Plus*) 30 ml PO Q4H PRN PRN Reason: INDIGESTION [place] Carbonate ([place] Carbonate Tab*) 300 mg PO BID LOU Lorazepam (Ativan Tab(*)) 1 mg PO Q6H PRN PRN Reason: ANXIETY Last Admin: 08/01/19 06:40 Dose: 1 mg Non-Formulary Medication (Tiotropium [place] [Spiriva Respimat]) 1 puff INH BID PRN PRN Reason: SOB/WHEEZING Olanzapine (Zyprexa Tab*) 5 mg PO Q6H PRN PRN Reason: AGITATION Olanzapine (Zyprexa Tab*) 5 mg PO BEDTIME LOU - Discharge Plan Discharge Plan: Inpatient Hospitalization
[2019-08-01] MEDS: OLANzapine TAB* 5 MG PO PRN (16:40)
[2019-08-01] MEDS: Lithium Carbonate TAB* 300 MG PO SCH (21:08)
[2019-08-01] MEDS: OLANzapine TAB* 5 MG PO SCH (21:09)
[2019-08-02] MEDS: Lithium Carbonate TAB* 300 MG PO SCH ×2 (08:38→20:35)
[2019-08-02] MEDS: LORazepam TAB(*) 1 MG PO PRN ×2 (11:21→19:17)
[2019-08-02] MEDS: OLANzapine TAB* 5 MG PO PRN (14:19)
--- NOTE | 2019-08-02 15:44 | PN ---
Subjective - Subjective Date of Service: 08/02/19 Subjective: Emy reports "feeling a lot better," after a restful night of sleep, her anxiety is down, she feels less paranoid, "I would never hurt my child." She denies A/VH or SI/HI or side effects from prescribed medications. Per staff, she has been adherent to unit's routines. Objective - General Observations Appearance: Neat Appears Stated Age: Yes Stature: WNL Posture: WNL Eye Contact: Average Behavior/Activity: WNL - Interaction Observations Attitude Towards Examiner: Cooperative Stated Mood: Anxious Affect: Restricted Speech Pattern/Tone: Appropriate, Normal Volume Thought Process: Coherent, Goal Directed Perception: WNL Thought Content: Paranoid Hallucination Type: None Delusion Type: None - Cognitive Function Orientation: A&O x 4 Level of Consciousness: Alert Estimated Intelligence: Normal Judgment Within Normal Limits: Yes - Medication Compliance Cooperative with Inpatient Medication Regimen: Yes - Group Participation Participates in Group Activities: Yes Assessment - Assessment Merits Inpatient Hospitalization: Consolidate Improvements, For Discharge Planning Clinical Impression: 34 year old Female with a history of Bipolar I disorder, Borderline personality disorder, history of bulimia nervosa who presented to the emergency department showing signs of psychosis and was admitted to the BSU at [facility]. Stabilizing in this structured setting. Plan - Plan Treatment Plan: Name: EMY GAMBOA Birthdate: 1985 [id number] #Q15 minute observation. # The patient requires psychiatric inpatient admission at this time to assure safety, receive treatment and work toward stabilization. # EKG ordered for risk of QT prolongation of antipsychotic medication. # B-HCG was ordered and results are negative. # Obtained collateral information from her at [phone] # Collaboration with Hone Operator Samantha Busby. # Increase lithium 300mg BID # CPS report filed # Zyprexa 5 mg qhs # Discontinued thorazine prn and started zyprexa prn #Goals before discharge include: Psychiatric Stabilization Tentative Discharge: Pending hospital course and response to treatment Sodium 135 mmol/L (135-145) 07/30/19 14:06 Potassium 3.7 mmol/L (3.5-5.0) 07/30/19 14:06 BUN 12 mg/dL (6-24) 07/30/19 14:06 Creatinine 0.63 mg/dL (0.51-0.95) 07/30/19 14:06 Calcium 9.7 mg/dL (8.6-10.3) 07/30/19 14:06 AST 16 U/L (13-39) 07/30/19 14:06 ALT 12 U/L (7-52) 07/30/19 14:06 Medications: Current Medications Acetaminophen (Tylenol Tab*) 650 mg PO Q4H PRN PRN Reason: for pain; or Temp >101 F Al Hydrox/Mg Hydrox/Simethicone (Maalox Plus*) 30 ml PO Q4H PRN PRN Reason: INDIGESTION [place] Carbonate ([place] Carbonate Tab*) 300 mg PO BID LOU Last Admin: 08/02/19 08:38 Dose: 300 mg Lorazepam (Ativan Tab(*)) 1 mg PO Q6H PRN PRN Reason: ANXIETY Last Admin: 08/02/19 11:21 Dose: 1 mg Non-Formulary Medication (Tiotropium [place] [Spiriva Respimat]) 1 puff INH BID PRN PRN Reason: SOB/WHEEZING Olanzapine (Zyprexa Tab*) 5 mg PO Q6H PRN PRN Reason: AGITATION Last Admin: 08/02/19 14:19 Dose: 5 mg Olanzapine (Zyprexa Tab*) 5 mg PO BEDTIME LOU Last Admin: 08/01/19 21:09 Dose: 5 mg - Discharge Plan Discharge Plan: Outpatient Follow Up Outpatient Program: [facility]
[2019-08-02] MEDS: OLANzapine TAB* 5 MG PO SCH (20:35)
[2019-08-03] MEDS: Lithium Carbonate TAB* 300 MG PO SCH ×2 (09:27→20:42)
[2019-08-03] MEDS: LORazepam TAB(*) 1 MG PO PRN (19:40)
[2019-08-03] MEDS: OLANzapine TAB* 5 MG PO SCH (20:42)
[2019-08-04] MEDS: Lithium Carbonate TAB* 300 MG PO SCH ×2 (08:02→21:09)
--- NOTE | 2019-08-04 10:24 | PN ---
Subjective - Subjective Date of Service: 08/04/19 Service Type: 69497 Hosp care 35 min high complexity Subjective: Nursing Report: Patient was visible on unit, no behavioral incidents. Slept overnight. She is attending group activities. CC: "I have been working on myself" This patient was seen and evaluated today. She went over her safety plan and future plans of doing yoga and being a mother. She reported having adequate appetite and sleep. The patient reports attending day groups. Per nursing no behavioral issues or overnight events reported. Patient reported that she is tolerating medications without side effects. Objective - General Observations Appearance: Neat Appears Stated Age: Yes Stature: WNL Posture: WNL Eye Contact: Average Behavior/Activity: WNL - Interaction Observations Attitude Towards Examiner: Cooperative Stated Mood: Euthymic Affect: Full Speech Pattern/Tone: Clear, Appropriate, Normal Volume Thought Process: Coherent Perception: WNL Thought Content: WNL Hallucination Type: None Delusion Type: None - Cognitive Function Orientation: A&O x 4 Level of Consciousness: Awake Insight: WNL - Medication Compliance Cooperative with Inpatient Medication Regimen: Yes - Group Participation Participates in Group Activities: Yes Assessment - Assessment Merits Inpatient Hospitalization: For Immediate Safety Clinical Impression: 34 year old Female with a history of Bipolar I disorder, Borderline personality disorder, history of bulimia nervosa who presented to the emergency department showing signs of psychosis and was admitted to the BSU at [facility]. Plan - Plan Treatment Plan: Name: PHILIPP GAMBOA Birthdate: 1985 [id number] #Q30 minute observation with staff pass # The patient requires psychiatric inpatient admission at this time to assure safety, receive treatment and work toward stabilization. # EKG ordered for risk of QT prolongation of antipsychotic medication and patient declined # B-HCG was ordered and results are negative. # Obtained collateral information from her at [phone] and he is in agreement with discharge plan. # Collaboration with Poultry Farm Supervisor Samantha Busby. # Increase lithium 300mg BID # CPS report filed # Zyprexa 5 mg qhs # [place] level for Sunday #Goals before discharge include: Psychiatric Stabilization Tentative Discharge: Sunday Sodium 135 mmol/L (135-145) 07/30/19 14:06 Potassium 3.7 mmol/L (3.5-5.0) 07/30/19 14:06 BUN 12 mg/dL (6-24) 07/30/19 14:06 Creatinine 0.63 mg/dL (0.51-0.95) 07/30/19 14:06 Calcium 9.7 mg/dL (8.6-10.3) 07/30/19 14:06 AST 16 U/L (13-39) 07/30/19 14:06 ALT 12 U/L (7-52) 07/30/19 14:06 Continued Medication Management: Continue Outpt Medication Medications: Current Medications Acetaminophen (Tylenol Tab*) 650 mg PO Q4H PRN PRN Reason: for pain; or Temp >101 F Al Hydrox/Mg Hydrox/Simethicone (Maalox Plus*) 30 ml PO Q4H PRN PRN Reason: INDIGESTION [place] Carbonate ([place] Carbonate Tab*) 300 mg PO BID [facility] Last Admin: 08/04/19 08:02 Dose: 300 mg Lorazepam (Ativan Tab(*)) 1 mg PO Q6H PRN PRN Reason: ANXIETY Last Admin: 08/03/19 19:40 Dose: 1 mg Non-Formulary Medication (Tiotropium [place] [Spiriva Respimat]) 1 puff INH BID PRN PRN Reason: SOB/WHEEZING Olanzapine (Zyprexa Tab*) 5 mg PO Q6H PRN PRN Reason: AGITATION Last Admin: 08/02/19 14:19 Dose: 5 mg Olanzapine (Zyprexa Tab*) 5 mg PO BEDTIME LOU Last Admin: 08/03/19 20:42 Dose: 5 mg - Discharge Plan Discharge Plan: Inpatient Hospitalization
[2019-08-04] MEDS: OLANzapine TAB* 5 MG PO SCH (21:08)
[2019-08-05] MEDS: Lithium Carbonate TAB* 300 MG PO SCH (08:04)
--- NOTE | 2019-08-05 08:22 | DS ---
Subjective - Subjective Service Types: 307[address] [facility] Day Mgmt complex over 30 min Discharge Date: 08/05/19 Subjective: CC: " I am so much better" Patient looks forward to seeing her family and doing yoga. The patient was seen and evaluated before discharge today. The patient reported having adequate appetite and sleep. The patient reported participating in some of the day groups. Per nursing no behavioral issues or overnight events reported. Patient reported tolerating medications without side effects. Justification for admission: Immediate Safety. CC " I panicked" The patient was brought to [facility] by her after he noticed behavioral changes that included not sleeping, saying things that did not make sense. expressing suicidal ideation and giving away her daughters belongings. She denied access to firearms or stockpiles of medications. She reported not sleeping since Sunday and having a poor appetite. Upon evaluation, the patient denied homicidal ideation intent or plan, although per staff report the patient told her that the only way to kill the virus is to overdose her baby. The patient denied visual hallucinations. The patient reported hearing voices sometimes and that the voices were more loud since Sunday and was described them as a pulse of light. She reported using cannabis a week ago but did not notice any changes in herself after using. Patient reported having a 17 month old daughter , and she felt depressed after giving but denied psychotic symptoms following delivery. She reported that due to the coronavirus that she became scared about not having things for her daughter. Patient received medication of thorazine 50mg and ativan 1mg prn. Depression She reported feeling depressed and having trouble with sleep. She has had recent weight loss, appetite and decreased concentration. Anxiety She reported feeling restless, high strung, and worrying too much most of the time. Bipolar She reported having symptoms of eder such as having many ideas at once with increased talkativeness where no one can interrupt. She has been experiencing he decreased need to sleep for days. She reported increased goal directed activities. Denied impulsive risky sexual encounters. Denied spending money recklessly , going on spending sprees wiping out savings. Denied impulsively traveling out of town or country, having super soliman, and unrealistic wealth or fame. Psychosis Denied feeling that TV is making references. Denied feeling that people are spying , following , or reading her thoughts. Phobias: Patient denied having excessive fear of a particular thing or situation. Eating disorders: Patient denied having excessive eating habits or feelings of guilt after eating. Denied repeated episodes of self induced vomiting after eating. PTSD Denied flashbacks, nightmares and avoidance of a prior traumatic event. PAST PSYCHIATRIC HISTORY: Prior Diagnosis : Bipolar I disorder, Borderline personality disorder , history of bulimia nervosa. History of past Psychiatric Hospitalizations: 2 prior psychiatric admission. In 2007 due to a suicide attempt in [facility] and another was in 2003 due to a eating disorder in [facility]. History of past suicide/homicide attempts : 1 past suicide attempts, denied repeated self injurious behavior. Denied history of violence. Outpatient follow-up: none at this time Medications: Past trials of medications include Depakote , seroquel both made her feel sleepy so she stopped taking them. Guardianship: None. FAMILY HISTORY: - Suicide: Her mother has made a past suicide attempt - Mental illness: Mother has bipolar disorder - Substance abuse: Denied substance abuse among family members. SUBSTANCE ABUSE HISTORY: - EtOH: Drinks 1-2 bottles of wine on the weekend. No associated legal issues, blackouts, seizures, DTs or past hospitalizations due to alcohol. - Tobacco: Denied - Cannabis: uses on average once weekly - Heroin: Denied - Cocaine: Denied - Substance abuse treatment: Denied past substance abuse treatment SOCIAL HISTORY: - Denied a history of childhood physical and or sexual abuse Born in [facility] and raised by both parents. - Education: Completed college and was recently enrolled in a PhD program at [employer]. No history of special education. - Living situation: Currently lives in [facility] with her - Employment history: Currently unemployed prior work included IT work at [employer] - Relationship: and has one daughter - Legal history: Denied - service history: Denied PAST MEDICAL HISTORY: Denied heart disease, diabetes, cancer and/ or other medical conditions. - Allergies: Denied drug or other allergies. Physical Exam: Please see ED note Mental Status Exam on Admission APPEARANCE : 34 year old Female who appears stated age. Patient is not malodorous, and appears to have poor hygiene and grooming. BEHAVIOR: Cooperative , calm EYE CONTACT: Fair PSYCHOMOTOR ACTIVITY: No psychomotor agitation or retardation. MOVEMENTS: No abnormal movements observed. SPEECH : Normal rate, rhythm, volume and tone. MOOD : "Fine " AFFECT : Type is anxious, Range is restricted Mood Congruent THOUGHT PROCESS: Slow response with some latency, concrete, thought blocking THOUGHT CONTENT: no delusions, obsessions, phobias or preoccupations. PERCEPTION: auditory hallucinations. Doesnt appear to be responding to internal cues with some depersonalization SUICIDALITY recent suicidal ideation HOMICIDALITY Denied homicidal ideation, intent or plan, however per collateral report she voices that the only way to kill the virus is to kill her baby. Insight/judgment: Poor insight and judgment ORIENTATION: Oriented to self, location, and time. Diagnosis on Admission: Bipolar I disorder with recent manic episode, Borderline personality disorder, history of bulimia nervosa Diagnosis on Discharge: Bipolar I disorder with recent manic episode, Borderline personality disorder, history of bulimia nervosa Condition at the time of discharge: At the time of discharge the patient showed improvement of sleep and appetite. The patient was not a danger to self or others. The patient denied suicidal ideation, intent or plan. The patient denied homicidal targets, ideation, intent or plan. This patient participated in psychosocial rehabilitation and gained some insight into problems. The patient gained insight into mental illness, triggers, and treatment. The patient took medication as prescribed. The patient denied side effects of medication and objective signs of side effects were not evident. Therapy Resources were offered to the patient. Patient was given a supply of prescriptions at the time of discharge. The patient plans to attend follow up care with the follow up arrangements that were discussed and put in place. Patient was asked to keep appointments as scheduled, take medication as prescribed, have routine follow up care with their primary care physician and refrain from any use of alcohol or drugs. Objective - General Observations Appearance: Neat Appears Stated Age: Yes Stature: WNL Posture: WNL Eye Contact: Average Behavior/Activity: WNL - Interaction Observations Attitude Towards Examiner: Cooperative Stated Mood: Euthymic Affect: Full Speech Pattern/Tone: Clear, Appropriate, Normal Volume Thought Process: Coherent Perception: WNL Thought Content: WNL Hallucination Type: Denies Delusion Type: Denies - Cognitive Function Orientation: A&O x 4 Level of Consciousness: Awake Cognition: WNL - Medication Compliance Cooperative with Inpatient Medication Regimen: Yes - Group Participation Participates in Group Activities: Yes Treatment Course & Assessment Clinical Course & Impression: Hospital course part A: 34 year old Female with a history of Bipolar I disorder, Borderline personality disorder, history of bulimia nervosa who presented to the emergency department showing signs of psychosis and was admitted to the BSU at [facility]. Hospital course part B: Labs ordered included CBC, CMP, UDS, TSH, HBA1c, TSH, Toxicology screen, Urine analysis, and lipid profile. Labs were reviewed and vital signs were monitored during the course of admission. EKG ordered and patient refused. The patient was admitted to the adult behavioral unit and placed on 15 minute check for safety. At a later time the patient was on Q30 minute observation and staff pass privileges. With those limits being extended, the patient was safe on all checks and there were no occurrence of behavioral incidents. The patient did well on the unit and went to groups. The patient maximized the therapeutic value offered by the inpatient psychiatric care environment. The patient had adequate sleep and a regular appetite. The patient tolerated medication changes without side effects. Group therapy and services were offered. The risks, benefits, and alternative treatment options were discussed as well as of the risks of refusing treatment. Treatment associated risks discussed with the patient. After this discussion the patient made an acknowledgement of this understanding. Follow up care appointments were put in place. HBA1c, glucose, and lipid panel was ordered to monitor metabolic status. Monitoring for metabolic changes was reviewed and it was emphasized to the patient to be continued to be monitored upon discharge. The patient was informed not to abruptly stop or start new medications before consulting with a medical professional. The patient showed Improvements since the time of admission which include: a broader range of affect, regular sleep and a decrease in anxiety and depression. At discharge, the patient was no longer showing features of psychosis. The patient expressed their readiness for discharge. The patient denied suicidal and or homicidal ideation intent or plan. Overall, the patient responded well to inpatient treatment as evidenced by their report of strengthening of coping mechanisms, reduced distress, and a more positive outlook on their circumstances. Of note there was an improvement of recognizing how emotional state can effect mood and behavior. After treatment and resolving features of psychosis, the patient did not have intent or plan to harm herself or her baby. Safety precautions were put in place which included involving the patient and their family to closely monitor for changes in mental state. In addition, implementing follow up care, screening for the need to remove/securing firearms , weapons and stockpile of medications. Patient/ family instructed to immediately call 911 should any safety concerns arise. AIMS was performed and insignificant for involuntary movement disorders. B-HCG is negative for current . She was informed of the risks associated with medication in . In the event that she becomes in the future and was advised to talk with her outpatient healthcare provider about starting or stopping medications during . The patient was advised of the 24 hour / 7 days a week availability of the emergency room and to call 911 in the event of an emergency such as being suicidal and/ or homicidal. The patient was informed of the contact information for [facility], Suicide Prevention and Crisis Services, National Suicide Prevention Lifeline, [facility], Alcoholics Anonymous, and [facility]. [place] level was 0.53 and they were advised about the importance of monitoring medication levels after leaving the hospital. Medications started included lithium 300mg BID and zyprexa 5mg qhs. CPS was notified and reviewed the case and did not see any further need for further investigation. Family was contacted before discharge. Her confirmed that the patient is at their baseline. At this time both the patient and family are eager for discharge and are in agreement with the discharge plan and can receive care in the less restrictive outpatient setting. They were advised on how the days following discharge can be a vulnerable period and to look out for warning signs associated with decompensation and progression of mental illness. They were notified of the resources available in the event these situations arise and confirmed that the patient has no access to firearms or stockpiles of medications. Her plans to monitor her medications and mental health at home. Patient was not assaultive or a behavioral problem during the course of admission. The patient showed good hygiene and was able to carry out activities of daily living. Patient will be discharged to live at home. Follow up appointment at [facility] Patient informed of follow up appointment times. See more details for follow up care in the discharge plan. Risk factors were mitigated by establishing the patients baseline with close contacts. Implemented precautionary safety measures by confirming no stockpiles of medications and no access to firearms, provided mental health treatment, offered substance abuse resources, treatment, and therapy groups, stabilization of psychiatric symptoms, provided resources to outpatient services , as well as provided a supportive care environment and therapy resources during the course of hospitalization. A safety plan was created by the patient and this was reviewed with the patient and treatment team. The patient verbalized the steps they would take to ensure their safety in the event of a crisis or they begin to show signs that they have identified when they are not doing well. Risk factors:, history of a mental health condition, Prior history of a suicide attempt. Recent hospitalization. Recent job loss. History of eating disorder. Mother has a history of suicide attempts Protective factors: has children. Lives with . Female, At discharge patient did not have suicidal and or homicidal ideation, intent or plan. No suicide attempts in the last year. Has social/ family support system. No history of service. Currently no feelings of hopelessness, not in an occupation of social isolation, doesnt have multiple medical conditions, doesnt have access to firearms. Doesnt have command hallucinations and or psychotic features at this time. No current substance abuse. No current alcohol abuse. Not an anniversary of a loss of a loved one. The patient is currently future orientated. Patient engaged in treatment and compliant with medication. No barriers to seek mental health treatment. Not incarcerated. Not middle or older age. The patient did not have a cultural belief that supported suicide. Patient did not experience a loss of someone close that recently by suicide. Laboratory Results - last 24 hr 08/05/19 06:07 [place] 0.53 L Sodium 135 mmol/L (135-145) 07/30/19 14:06 Potassium 3.7 mmol/L (3.5-5.0) 07/30/19 14:06 BUN 12 mg/dL (6-24) 07/30/19 14:06 Creatinine 0.63 mg/dL (0.51-0.95) 07/30/19 14:06 Calcium 9.7 mg/dL (8.6-10.3) 07/30/19 14:06 AST 16 U/L (13-39) 07/30/19 14:06 ALT 12 U/L (7-52) 07/30/19 14:06 Merits Inpatient Hospitalization: No Clear for Discharge: Adequate Clinical Respons Discharge Planning - Discharge Planning Discharge Plan: Outpatient Follow Up Outpatient Program: [facility] Recommendations for Continuing Care: Medication Management Medications: Current Medications Acetaminophen (Tylenol Tab*) 650 mg PO Q4H PRN PRN Reason: for pain; or Temp >101 F Al Hydrox/Mg Hydrox/Simethicone (Maalox Plus*) 30 ml PO Q4H PRN PRN Reason: INDIGESTION [place] Carbonate ([place] Carbonate Tab*) 300 mg PO BID LOU Last Admin: 08/05/19 08:04 Dose: 300 mg Lorazepam (Ativan Tab(*)) 1 mg PO Q6H PRN PRN Reason: ANXIETY Last Admin: 08/03/19 19:40 Dose: 1 mg Non-Formulary Medication (Tiotropium Sawyer [Spiriva Respimat]) 1 puff INH BID PRN PRN Reason: SOB/WHEEZING Olanzapine (Zyprexa Tab*) 5 mg PO Q6H PRN PRN Reason: AGITATION Last Admin: 08/02/19 14:19 Dose: 5 mg Olanzapine (Zyprexa Tab*) 5 mg PO BEDTIME LOU Last Admin: 08/04/19 21:08 Dose: 5 mg Discharge Planning: Prescriptions provided for discharge [x] Yes [] No Follow up care details as per social work arrangements. Patient response to discharge plan: [x] eager for discharge [] agreeable with discharge plan [] ambivalent about discharge [] disagrees with discharge today
--- NOTE | 2019-08-05 11:00 | PN ---
BSU: Group Therapy Note - Service Type Service Type: 44031 Group Psychotherapy - Cognitive Behavioral Group Therapy ( CBT):Patient was attentive and participatory in CBT programming this morning, and remained in good behavioral control. Patient expressed positive insights regarding relevant treatment interventions and goals.
[2019-08-05 11:58] VITALS: BP 124/82
== END 2019-08-05 11:00 | disposition home or self-care (01) | DRG 885 ==
LOC: ED 12:13 → BSU 16:29 → ED 17:31 → BSU 08-02 16:12
PROVIDERS: ADMIT Psychiatry & Neurology Psychiatry; ATTEND Psychiatry & Neurology Psychiatry
DX: F31.2 Bipolar disorder, current episode manic severe with psychotic features (principal); R45.851 Suicidal ideations; R45.850 Homicidal ideations; F60.3 Borderline personality disorder; Z81.8 Family history of other mental and behavioral disorders
CPT/HCPCS: 36415; 80053; 80178; 80307; 80320; 80329; 81003; 81015; 84443; 84702; 85025; 87086; 90853; 99222; 99231; 99233; 99238; 99284; A9270-GY; G0480